=== PATIENT | female | born 1980 | race Caucasian/White ===

== ENCOUNTER 2022-04-10 13:54 | Emergency (ER) | payer OTHER ==
[2022-04-10] MEDS ORDERED: Morphine 4 MG/ML VIAL ONE (14:46)
[2022-04-10] MEDS ORDERED: Acetaminophen 500 MG TAB ONE (14:46)
== END 2022-04-10 15:00 | disposition home or self-care (01) ==
LOC: NAV ERS 13:54
DX: S52.551A Other extraarticular fracture of lower end of right radius, initial encounter for closed fracture (principal); X50.9XXA Other and unspecified overexertion or strenuous movements or postures, initial encounter; D56.3 Thalassemia minor; D64.9 Anemia, unspecified; M06.9 Rheumatoid arthritis, unspecified; Z79.899 Other long term (current) drug therapy
CPT/HCPCS: 29125; 96372; J2270